=== PATIENT | male | born 1975 | race Hispanic/Latino ===

== ENCOUNTER → 2021-09-05 | Outpatient (CLI) | payer OTHER ==
[~2021-09-05] MED LIST: LORA10TA7 PO
== END | disposition home or self-care (01) ==
LOC: OIH 13:16
PROVIDERS: ATTEND Family Medicine Sports Medicine
DX: Z13.6 Encounter for screening for cardiovascular disorders (principal); I25.10 Atherosclerotic heart disease of native coronary artery without angina pectoris; R07.9 Chest pain, unspecified
CPT/HCPCS: 75571